=== PATIENT | female | born 2000 | race Caucasian/White ===

== ENCOUNTER 2023-04-12 06:31 | Inpatient (IN) ==
--- NOTE | 2023-04-12 07:55 | History & Physical Report ---
Date of Service April 12, 2023 Assessment & Plan (1) Severe pre-eclampsia: Plan: Patient was seen on Monday and yesterday again in the office as she had some issues with chest pain. However on detailed questioning it seems like she has more upper epigastric pain she went to a comprehensive emergency room workout and was found to be negative for any serious cardiac issues she did decline chest x-ray. She was brought up here because after being assessed in the ER it was thought that she had an elevated blood pressure and blood pressures have worsened. She does not have a severe headache but her blood pressures are now in the severe range. Additionally with her symptoms and now her platelet count has dropped below 100 her AST is slightly elevated and her creatinine is slightly higher than typical levels I think she has classic preeclampsia with severe features this is reviewed with the patient magnesium will be started and induction process will be started her cervix is closed and 50% she is group B strep positive History of Present Illness Primary Care Provider: Elsa Cardenas, DO Visit JORGE LUIS Calculator Estimated Delivery Date Method Current WG Current Estimate 04/29/23 LMP (Certain) 37w 3d LMP: 07/23/22 : 1 Full term: 0 Premature: 0 Total Number of Induced Abortions: 0 Total Number of Spontaneous Abortions: 0 Ectopics: 0 Multiple births: 0 Number of Living Children: 0 and Delivery Plans GBS Positive in Urine *Treat in labor Protocols We discussedand offered genetic testing at the visit today.This included cystic fibrosis and spinal muscular atrophy testing. Additionally we discussed and offered screening and diagnostic tests for chromosomal problems. These include NT, Quad screen, NIPS, Amniocentesis and [facility] JFD Allergies Allergy/AdvReac Type Severity Reaction Status Date / Time No Known Allergies Allergy Verified 04/11/23 09:31 Home Medications Medication Instructions Recorded Confirmed Type calcium carbonate 200 mg calcium 200 mg PO QID PRN Heartburn 04/12/23 04/12/23 History (500 mg) chewable tablet (Tums) famotidine 20 mg tablet (Pepcid AC) 20 mg PO DAILY PRN Acid Reflux 04/12/23 04/12/23 History prenat.vits,anatoliy,uqu-[id number]-[id number] 1 tab PO DAILY 04/12/23 04/12/23 History Patient History Surgical History (Updated 09/13/22 @ 07:47 by Sonja J Knepp) History of tympanostomy Family History Father Heart disease Social History (Updated 04/12/23 @ 07:03 by Karen Shah RN) Smoking Status: Never smoker Do You Dip or Chew Tobacco: No; Hx Alcohol Use: No Hx Substance Use: No Preferred Language: Lithuanian Communication Ability: Effective Visual Impairment: No Limitations Hearing Ability: Normal 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 Other Information That Helps Us Care for You: No Feels Safe at Home: Yes Safety Concerns: Feels Safe At This Time Diet: regular Gender Identity: Female Assistive Devices: None Review of Systems as per Subjective / HPI Physical Exam Constitutional: WD/WN, vitals as above well developed and well nourished Respiratory: normal respiratory effort, lungs clear to auscultation normal respiratory effort Cardiovascular: RRR, no murmur, no edema Gastrointestinal (Abdomen): normal bowel sounds, soft, nontender, no hepatosplenomegaly Results & Data Vital Signs (Past 12 Hours) Vital Signs Temp Pulse Resp BP 04/12/23 07:10 98.6 F 20 04/12/23 07:42 105 H 04/12/23 07:42 160/88 H 04/12/23 07:28 69 04/12/23 07:28 159/90 H 04/12/23 07:27 69 04/12/23 07:27 152/92 H 04/12/23 07:14 69 04/12/23 07:14 150/100 H 04/12/23 06:55 73 153/102 H 04/12/23 06:51 62 138/96 Coding Level of Care Code None Diagnoses Severe pre-eclampsia O14.10
[2023-04-12] MEDS ORDERED: LIDOCAINE 1% LOCAL 20 ML VIAL INFIL PRN (07:56)
[2023-04-12] MEDS ORDERED: OXYTOCIN 30 UNITS/500 ML BAG IV PRN ×2 (07:56→09:42)
[2023-04-12] MEDS ORDERED: MAG SULFATE 4GM BOLUS FROM BAG IV ONE (07:56)
[2023-04-12] MEDS: LACTATED RINGER'S 1,000 ML IV PRN (08:00)
[2023-04-12] MEDS ORDERED: PENICILLIN G POTASSIUM 6 MU in DEXTROSE 5% 250 ML IV STA (08:01)
[2023-04-12] MEDS ORDERED: NIFEdipine 10 MG CAP PO STA (08:09)
[2023-04-12] MEDS ORDERED: NIFEdipine 10 MG CAP ONE (08:11)
--- NOTE | 2023-04-12 08:11 | Obstetrical Progress Note ---
Date of Service April 12, 2023 Subjective Note blood pressure is now creeped into the severe range as well 164/89 we will elect to treat with nifedipine 10 mg p.o. x1 stat now Results & Data Vital Signs (Past 12 Hours) Vital Signs Temp Pulse Resp BP 04/12/23 07:10 98.6 F 20 04/12/23 07:58 75 04/12/23 07:58 164/89 H 04/12/23 07:42 105 H 04/12/23 07:42 160/88 H 04/12/23 07:28 69 04/12/23 07:28 159/90 H 04/12/23 07:27 69 04/12/23 07:27 152/92 H 04/12/23 07:14 69 04/12/23 07:14 150/100 H 04/12/23 06:55 73 153/102 H 04/12/23 06:51 62 138/96 PG Care Time/CCT Total # of Minutes Spent Total Time Spent with Patient: Total time spent is greater than 50% in coordination of care (as documented) at patient's floor/unit and/or counseling patient: Coding Level of Care Code None Diagnoses
[2023-04-12] MEDS: MAGNESIUM SULFATE / WTR 40 GM/1,000 ML BAG IV SCH (08:17)
[2023-04-12 08:41] LABS: Hemoglobin 13.5 g/dl (12.0-16.0); Mean Corpuscular Hemoglobin 30.7 pg (25.0-34.0); Mean Corpuscular Hgb Conc 34.6 g/dL (32.0-36.0); Mean Corpuscular Volume 88.6 fL (80.0-100.0); Mean Platelet Volume 12.9 fL (9.4-12.4); Platelet Count 86 K/uL (130-400); RDW Coefficient of Variation 13.5 % (11.5-14.5); RDW Standard Deviation 43.7 fL (36.4-46.3); White Blood Count 10.12 K/ul (4.8-10.8)
--- NOTE | 2023-04-12 09:45 | Labor Progress Brief Note ---
Date of Service April 12, 2023 Subjective met w/ pt as on-coming call provider. She is s/p mag bolus, bueno placed, nifedipine x 1. Still having some epigastric pain but better than earlier Assessment & Plan (1) Severe pre-eclampsia: Plan: 22 yo G1 at 37 4/7 wga admitted w/ pre-eclampsia w/ SF VSS, mild range BPs Fetus cat 1 Pre-eclampsia w/ SF - meets criteria by BPs and platelets, s/p nifedipine x 1 this AM. Continue mag Labor - will start induction w/ pit/bueno, 35cc bueno placed and pt tolerated well GBS+, pcn ordered Epidural prn, will discuss w/ anesthesia re plts Physical Exam Genitourinary: OB Exam Abdomen: + vertex (confirmed by bsus) and + estimated weight Manual OB Exam: + cervical dilation 1 cm, + cervical effacement 50% and + station -2 OB Exam Monitor Tracing: + external FHT monitor used, + external uterine monitor used (irreg) and + category I (140/mod/+accel/-decel) Results & Data Vital Signs (Past 12 Hours) Vital Signs Temp Pulse Resp BP 04/12/23 08:17 20 04/12/23 07:10 98.6 F 20 04/12/23 09:26 85 04/12/23 09:26 142/88 H 04/12/23 09:11 88 04/12/23 09:11 141/80 H 04/12/23 08:56 93 H 04/12/23 08:56 142/82 H 04/12/23 08:42 100 H 04/12/23 08:42 140/82 04/12/23 08:27 73 04/12/23 08:27 158/91 H 04/12/23 07:58 75 04/12/23 07:58 164/89 H 04/12/23 07:42 105 H 04/12/23 07:42 160/88 H 04/12/23 07:28 69 04/12/23 07:28 159/90 H 04/12/23 07:27 69 04/12/23 07:27 152/92 H 04/12/23 07:14 69 04/12/23 07:14 150/100 H 04/12/23 06:55 73 153/102 H 04/12/23 06:51 62 138/96 Coding Level of Care Code None Diagnoses Severe pre-eclampsia O14.10
[2023-04-12] MEDS ORDERED: SODIUM CHLORIDE 0.9% 250 ML IV PRN (11:11)
[2023-04-12] MEDS: PENICILLIN G POTASSIUM 3 MU in DEXTROSE 5% 100 ML IV PRN ×3 (13:01→21:41)
[2023-04-12 14:21] LABS: Hematocrit (blood only) 42.6 % (37.0-47.0); Hemoglobin 14.8 g/dl (12.0-16.0); Mean Corpuscular Hemoglobin 30.5 pg (25.0-34.0); Mean Corpuscular Hgb Conc 34.7 g/dL (32.0-36.0); Mean Corpuscular Volume 87.8 fL (80.0-100.0); Mean Platelet Volume 12.9 fL (9.4-12.4); Platelet Count 71 K/uL (130-400); RDW Coefficient of Variation 13.7 % (11.5-14.5); RDW Standard Deviation 43.8 fL (36.4-46.3); Red Blood Count 4.85 M/uL (4.20-5.40); White Blood Count 11.71 K/ul (4.8-10.8)
[2023-04-12] MEDS ORDERED: ACETAMINOPHEN 325 MG TAB PO PRN (15:36)
--- NOTE | 2023-04-12 15:55 | Labor Progress Brief Note ---
Date of Service April 12, 2023 Subjective Uncomfortable w/ ctx. OCHOA unchanged, denies other s/s PET Assessment & Plan (1) Severe pre-eclampsia: Plan: 22 yo G1 at 37 4/7 wga admitted w/ pre-eclampsia w/ SF VSS, mild range BPs Fetus cat 1 Pre-eclampsia w/ SF - Mag running, excellent UOP. Platelets have slowly drifted and now at 71. Discussed w/ anesthesia who feel too risky for epidural and did discuss this w/ pt. Discussed continuing q6h labs to ensure cr not worsening, if increases may need to decrease maintenance mag but at this point uop and clinically not showing signs of mag tox. Will have mag level ordered due to cr as well. Labor - bueno still present but feels like almost out, continue pit GBS+, pcn ordered Unable to get epidural, discussed tylenol and stadol options and pt aware Admission and Anticipated Discharge Date Admission Date: April 12, 2023 Physical Exam Genitourinary: OB Exam Monitor Tracing: + external FHT monitor used, + external uterine monitor used (q3-6) and + category I (140/mod/+accel/-decel) Bueno bulb still in place Results & Data Vital Signs (Past 12 Hours) Vital Signs Temp Pulse Resp BP Pulse Ox 04/12/23 15:03 20 04/12/23 15:03 20 04/12/23 14:00 22 04/12/23 14:00 22 04/12/23 13:06 20 04/12/23 12:01 20 04/12/23 11:59 98.8 F 20 04/12/23 11:00 20 04/12/23 10:00 20 04/12/23 08:17 20 04/12/23 07:10 98.6 F 20 04/12/23 15:43 99 04/12/23 15:43 86 04/12/23 15:38 100 04/12/23 15:38 88 04/12/23 15:33 100 04/12/23 15:33 89 04/12/23 15:28 100 04/12/23 15:28 93 H 04/12/23 15:29 88 04/12/23 15:29 145/98 H 04/12/23 15:23 100 04/12/23 15:23 101 H 04/12/23 15:18 100 04/12/23 15:18 93 H 04/12/23 15:13 100 04/12/23 15:13 98 H 04/12/23 15:08 100 04/12/23 15:08 90 04/12/23 15:03 100 04/12/23 15:03 87 04/12/23 14:58 100 04/12/23 14:58 86 04/12/23 14:59 85 04/12/23 14:59 140/95 04/12/23 14:53 100 04/12/23 14:53 83 04/12/23 14:48 100 04/12/23 14:48 84 04/12/23 14:43 100 04/12/23 14:43 85 04/12/23 14:38 100 04/12/23 14:38 90 04/12/23 14:33 100 04/12/23 14:33 85 04/12/23 14:28 100 04/12/23 14:28 96 H 04/12/23 14:28 92 H 04/12/23 14:28 20 138/93 04/12/23 14:23 100 04/12/23 14:23 90 04/12/23 14:18 100 04/12/23 14:18 87 04/12/23 14:13 100 04/12/23 14:13 87 04/12/23 14:08 100 04/12/23 14:08 85 04/12/23 14:03 100 04/12/23 14:03 88 04/12/23 14:01 87 04/12/23 14:01 138/87 04/12/23 13:58 100 04/12/23 13:58 90 04/12/23 13:53 100 04/12/23 13:53 101 H 04/12/23 13:48 99 04/12/23 13:48 85 04/12/23 13:43 100 04/12/23 13:43 86 04/12/23 13:38 99 04/12/23 13:38 92 H 04/12/23 13:33 100 04/12/23 13:33 88 04/12/23 13:28 100 04/12/23 13:28 88 04/12/23 13:28 131/79 04/12/23 13:23 100 04/12/23 13:23 89 04/12/23 13:18 100 04/12/23 13:18 84 04/12/23 13:13 99 04/12/23 13:13 89 05 13:08 100 04/12/23 13:08 89 04/12/23 13:03 100 04/12/23 13:03 88 04/12/23 12:58 100 04/12/23 12:58 87 04/12/23 12:58 131/78 04/12/23 12:53 100 04/12/23 12:53 88 04/12/23 12:48 100 04/12/23 12:48 83 04/12/23 12:43 100 04/12/23 12:43 92 H 04/12/23 12:38 100 04/12/23 12:38 93 H 04/12/23 12:33 100 04/12/23 12:33 78 04/12/23 12:28 98 04/12/23 12:28 85 04/12/23 12:28 130/82 04/12/23 12:23 99 04/12/23 12:23 83 04/12/23 12:18 99 04/12/23 12:18 84 04/12/23 12:13 100 04/12/23 12:13 84 04/12/23 12:08 98 04/12/23 12:08 81 04/12/23 12:03 100 04/12/23 12:03 80 04/12/23 11:58 99 04/12/23 11:58 85 04/12/23 11:58 139/93 04/12/23 11:53 100 04/12/23 11:53 83 04/12/23 11:48 99 04/12/23 11:48 81 04/12/23 11:43 100 04/12/23 11:43 83 04/12/23 11:38 100 04/12/23 11:38 85 04/12/23 11:33 100 04/12/23 11:33 89 04/12/23 11:28 98 04/12/23 11:28 88 04/12/23 11:28 20 144/93 H 04/12/23 11:23 99 04/12/23 11:23 80 04/12/23 11:18 100 04/12/23 11:18 77 04/12/23 11:13 98 04/12/23 11:13 83 04/12/23 11:08 99 04/12/23 11:08 82 04/12/23 11:03 100 04/12/23 11:03 93 H 04/12/23 10:59 81 04/12/23 10:59 147/91 H 04/12/23 10:58 18 100 04/12/23 10:58 84 04/12/23 10:53 99 04/12/23 10:53 87 04/12/23 10:48 100 04/12/23 10:48 86 04/12/23 10:43 100 04/12/23 10:43 78 04/12/23 10:38 100 04/12/23 10:38 80 04/12/23 10:33 100 04/12/23 10:33 81 04/12/23 10:29 75 04/12/23 10:29 155/93 H 04/12/23 10:28 100 04/12/23 10:28 80 04/12/23 10:23 99 04/12/23 10:23 84 04/12/23 10:18 99 04/12/23 10:18 94 H 04/12/23 10:13 99 04/12/23 10:13 87 04/12/23 10:08 100 04/12/23 10:08 85 04/12/23 10:05 80 04/12/23 10:05 133/89 04/12/23 10:03 100 04/12/23 10:03 83 04/12/23 09:58 100 04/12/23 09:58 80 04/12/23 09:53 100 04/12/23 09:53 83 04/12/23 09:48 100 04/12/23 09:48 82 04/12/23 09:26 85 04/12/23 09:26 20 142/88 H 04/12/23 09:11 88 04/12/23 09:11 141/80 H 04/12/23 08:56 93 H 04/12/23 08:56 142/82 H 04/12/23 08:42 100 H 04/12/23 08:42 140/82 04/12/23 08:27 73 04/12/23 08:27 158/91 H 04/12/23 07:58 75 04/12/23 07:58 164/89 H 04/12/23 07:42 105 H 04/12/23 07:42 160/88 H 04/12/23 07:28 69 04/12/23 07:28 159/90 H 04/12/23 07:27 69 04/12/23 07:27 152/92 H 04/12/23 07:14 69 04/12/23 07:14 150/100 H 04/12/23 06:55 73 153/102 H 04/12/23 06:51 62 138/96 Coding Level of Care Code 67084 OP VST EST LOW 20-29 MIN Diagnoses Severe pre-eclampsia O14.10
--- NOTE | 2023-04-12 16:55 | Communication Note ---
Date of Service: April 12, 2023 Informed by attending OB physician that patient had declining platelet count in the past 1-2 days. Patient admitted and being induced for severe pre-E (see OB physician's note for full details). Platelet count has been trended since her arrival and at most recent check it is down to 71 (was slightly over 100 yesterday). In the setting of severe pre-E with a large decline in platelet count, I did not feel it was appropriate to offer this patient a neuraxial technique. She is still not in significant labor pain and my concern is that this platelet count would continue to decline. Platelet transfusion not appropriate for epidural in setting of pre-E due to consumptive nature of the disease process. Had a lengthy discussion with patient and voiced my concerns about possibility of epidural hematoma. All questions were answered and patient to discuss pain control options with attending OB physician.
[2023-04-12] MEDS ORDERED: ONDANSETRON INJ 2 MG/ML 2 ML VIAL IV PRN (17:36)
--- NOTE | 2023-04-12 18:08 | Labor Progress Brief Note ---
Date of Service April 12, 2023 Subjective SROM around 1710 and leaking since, managing ctx Assessment & Plan (1) Severe pre-eclampsia: Plan: 22 yo G1 at 37 4/7 wga admitted w/ pre-eclampsia w/ SF VSS, mild range BPs Fetus cat 1 Pre-eclampsia w/ SF - Mag running, good UOP. Set of labs currently pending Labor - pit at 18, bueno now out and 4cm, had srom. Continue induction GBS+, pcn ordered Unable to get epidural, discussed tylenol and stadol options and pt aware Admission and Anticipated Discharge Date Admission Date: April 12, 2023 Physical Exam Genitourinary: Manual OB Exam: + cervical dilation 4 cm, + cervical effacement 70% and + station -2 OB Exam Monitor Tracing: + external FHT monitor used, + external uterine monitor used (q2-5) and + category I (140/mod/+accel/-decel) Results & Data Vital Signs (Past 12 Hours) Vital Signs Temp Pulse Resp BP Pulse Ox 04/12/23 17:02 20 04/12/23 17:02 16 04/12/23 15:56 20 04/12/23 15:52 99.0 F 20 04/12/23 15:03 20 04/12/23 15:03 20 04/12/23 14:00 22 04/12/23 14:00 22 04/12/23 13:06 20 04/12/23 12:01 04/12/23 11:59 98.8 F 20 04/12/23 11:00 20 04/12/23 10:00 20 04/12/23 08:17 20 04/12/23 07:10 98.6 F 20 04/12/23 18:03 100 04/12/23 18:03 97 H 04/12/23 17:58 100 04/12/23 17:58 87 04/12/23 17:58 142/95 H 04/12/23 17:53 100 04/12/23 17:53 86 04/12/23 17:48 100 04/12/23 17:48 87 04/12/23 17:43 100 04/12/23 17:43 79 04/12/23 17:38 100 04/12/23 17:38 79 04/12/23 17:33 100 04/12/23 17:33 79 04/12/23 17:28 100 04/12/23 17:28 93 H 04/12/23 17:29 89 04/12/23 17:29 135/91 04/12/23 17:23 100 04/12/23 17:23 95 H 04/12/23 17:18 100 04/12/23 17:18 98 H 04/12/23 17:13 100 04/12/23 17:13 91 H 04/12/23 17:08 100 04/12/23 17:08 84 04/12/23 17:03 100 04/12/23 17:03 84 04/12/23 16:58 100 04/12/23 16:58 88 04/12/23 16:59 90 04/12/23 16:59 144/97 H 04/12/23 16:53 100 04/12/23 16:53 80 04/12/23 16:48 100 04/12/23 16:48 90 04/12/23 16:43 99 04/12/23 16:43 84 04/12/23 16:38 100 04/12/23 16:38 86 04/12/23 16:33 99 04/12/23 16:33 85 04/12/23 16:28 100 04/12/23 16:28 89 04/12/23 16:28 96 H 04/12/23 16:28 147/99 H 04/12/23 16:23 99 04/12/23 16:23 87 04/12/23 16:18 99 04/12/23 16:18 84 04/12/23 16:13 99 04/12/23 16:13 82 04/12/23 16:08 100 04/12/23 16:08 81 04/12/23 16:03 100 04/12/23 16:03 84 04/12/23 15:59 87 04/12/23 15:59 149/99 H 04/12/23 15:58 100 04/12/23 15:58 83 04/12/23 15:53 99 04/12/23 15:53 82 04/12/23 15:48 100 04/12/23 15:48 89 04/12/23 15:43 99 04/12/23 15:43 86 04/12/23 15:38 100 04/12/23 15:38 88 05/31/23 15:33 100 04/12/23 15:33 89 04/12/23 15:28 100 04/12/23 15:28 93 H 04/12/23 15:29 88 04/12/23 15:29 145/98 H 04/12/23 15:23 100 04/12/23 15:23 101 H 04/12/23 15:18 100 04/12/23 15:18 93 H 04/12/23 15:13 100 04/12/23 15:13 98 H 04/12/23 15:08 100 04/12/23 15:08 90 04/12/23 15:03 100 04/12/23 15:03 87 04/12/23 14:58 100 04/12/23 14:58 86 04/12/23 14:59 85 04/12/23 14:59 140/95 04/12/23 14:53 100 04/12/23 14:53 83 04/12/23 14:48 100 04/12/23 14:48 84 04/12/23 14:43 100 04/12/23 14:43 85 04/12/23 14:38 100 04/12/23 14:38 90 04/12/23 14:33 100 04/12/23 14:33 85 04/12/23 14:28 100 04/12/23 14:28 96 H 04/12/23 14:28 92 H 04/12/23 14:28 20 138/93 04/12/23 14:23 100 04/12/23 14:23 90 04/12/23 14:18 100 04/12/23 14:18 87 04/12/23 14:13 100 04/12/23 14:13 87 04/12/23 14:08 100 04/12/23 14:08 85 04/12/23 14:03 100 04/12/23 14:03 88 04/12/23 14:01 87 04/12/23 14:01 138/87 04/12/23 13:58 100 04/12/23 13:58 90 04/12/23 13:53 100 04/12/23 13:53 101 H 04/12/23 13:48 99 04/12/23 13:48 85 04/12/23 13:43 100 04/12/23 13:43 86 04/12/23 13:38 99 04/12/23 13:38 92 H 04/12/23 13:33 100 04/12/23 13:33 88 04/12/23 13:28 100 04/12/23 13:28 88 04/12/23 13:28 131/79 05 13:23 100 04/12/23 13:23 89 04/12/23 13:18 100 04/12/23 13:18 84 04/12/23 13:13 99 04/12/23 13:13 89 04/12/23 13:08 100 04/12/23 13:08 89 04/12/23 13:03 100 04/12/23 13:03 88 04/12/23 12:58 100 04/12/23 12:58 87 04/12/23 12:58 131/78 04/12/23 12:53 100 04/12/23 12:53 88 04/12/23 12:48 100 04/12/23 12:48 83 04/12/23 12:43 100 04/12/23 12:43 92 H 04/12/23 12:38 100 04/12/23 12:38 93 H 04/12/23 12:33 100 04/12/23 12:33 78 04/12/23 12:28 98 04/12/23 12:28 85 04/12/23 12:28 130/82 04/12/23 12:23 99 04/12/23 12:23 83 04/12/23 12:18 99 04/12/23 12:18 84 04/12/23 12:13 100 04/12/23 12:13 84 04/12/23 12:08 98 04/12/23 12:08 81 04/12/23 12:03 100 04/12/23 12:03 80 04/12/23 11:58 99 04/12/23 11:58 85 04/12/23 11:58 139/93 04/12/23 11:53 100 04/12/23 11:53 83 04/12/23 11:48 99 04/12/23 11:48 81 04/12/23 11:43 100 04/12/23 11:43 83 04/12/23 11:38 100 05 11:38 85 05/31/23 11:33 100 04/12/23 11:33 89 04/12/23 11:28 98 04/12/23 11:28 88 04/12/23 11:28 20 144/93 H 04/12/23 11:23 99 04/12/23 11:23 80 04/12/23 11:18 100 04/12/23 11:18 77 04/12/23 11:13 98 04/12/23 11:13 83 04/12/23 11:08 99 04/12/23 11:08 82 04/12/23 11:03 100 04/12/23 11:03 93 H 04/12/23 10:59 81 04/12/23 10:59 147/91 H 04/12/23 10:58 18 100 04/12/23 10:58 84 04/12/23 10:53 99 04/12/23 10:53 87 04/12/23 10:48 100 04/12/23 10:48 86 04/12/23 10:43 100 04/12/23 10:43 78 04/12/23 10:38 100 04/12/23 10:38 80 04/12/23 10:33 100 04/12/23 10:33 81 04/12/23 10:29 75 04/12/23 10:29 155/93 H 04/12/23 10:28 100 04/12/23 10:28 80 04/12/23 10:23 99 04/12/23 10:23 84 04/12/23 10:18 99 04/12/23 10:18 94 H 04/12/23 10:13 99 04/12/23 10:13 87 04/12/23 10:08 100 04/12/23 10:08 85 04/12/23 10:05 80 04/12/23 10:05 133/89 04/12/23 10:03 100 04/12/23 10:03 83 04/12/23 09:58 100 04/12/23 09:58 80 04/12/23 09:53 100 04/12/23 09:53 83 04/12/23 09:48 100 04/12/23 09:48 82 04/12/23 09:26 85 04/12/23 09:26 20 142/88 H 04/12/23 09:11 88 04/12/23 09:11 141/80 H 04/12/23 08:56 93 H 04/12/23 08:56 142/82 H 04/12/23 08:42 100 H 04/12/23 08:42 140/82 04/12/23 08:27 73 04/12/23 08:27 158/91 H 04/12/23 07:58 75 04/12/23 07:58 164/89 H 04/12/23 07:42 105 H 04/12/23 07:42 160/88 H 04/12/23 07:28 69 04/12/23 07:28 159/90 H 04/12/23 07:27 69 04/12/23 07:27 152/92 H 04/12/23 07:14 69 04/12/23 07:14 150/100 H 04/12/23 06:55 73 153/102 H 04/12/23 06:51 62 138/96 Coding Level of Care Code None Diagnoses Severe pre-eclampsia O14.10
[2023-04-12 18:14] LABS: Hematocrit (blood only) 36.2 % (37.0-47.0); Hemoglobin 12.8 g/dl (12.0-16.0); Mean Corpuscular Hemoglobin 30.6 pg (25.0-34.0); Mean Corpuscular Hgb Conc 35.4 g/dL (32.0-36.0); Mean Corpuscular Volume 86.6 fL (80.0-100.0); Platelet Count 55 K/uL (130-400); RDW Coefficient of Variation 13.7 % (11.5-14.5); RDW Standard Deviation 42.6 fL (36.4-46.3); Red Blood Count 4.18 M/uL (4.20-5.40)
[2023-04-12 18:34] LABS: Albumin Level 3.3 gm/dl (3.4-5.0); BUN Creatinine Ratio 16.5 (10-20); Bilirubin,Total 1.1 mg/dl (0.2-1.0); Calcium 7.6 mg/dl (8.6-10.3); Creatinine Clr Calc Pharmacy 105.9 ml/min; Est GFR (African American) 112.7 ml/min; Est GFR (Non-African American) 97.3 ml/min; Globulin 3.2 gm/dl (2.5-4.0); Magnesium Therapeutic L&D Only 6.2 mg/dL (4.0-8.0); Potassium 4.5 mmol/L (3.5-5.1); Total Protein 6.5 gm/dl (6.0-8.3)
[2023-04-12] MEDS: BUTORPHANOL TARTRATE 1 MG/ML VIAL IV PRN ×2 (18:49→20:54)
[2023-04-12 20:53] LABS: Fibrinogen 522 mg/dl (184-400); INR 0.8 (0.9-1.1); Partial Thromboplastin Time 29.6 Seconds (21.0-31.0); Prothrombin Time 9.3 Seconds (9.0-12.0)
--- NOTE | 2023-04-12 23:08 | Delivery Summary ---
Vaginal Delivery Summary Date of Service April 12, 2023 Vaginal Delivery Summary and 2nd Degree LAC PREOPERATIVE DIAGNOSIS: 1. Single intrauterine at 37 4/7 wga 2. HELLP Syndrome 3. GBS+ POSTOPERATIVE DIAGNOSIS: 1. Single intrauterine at 37 4/7 wga 2. HELLP Syndrome 3. GBS+ 4. Delivered PROCEDURE: 1. Normal spontaneous vaginal delivery. SURGEON: Nenita Patel MD ANESTHESIA: Local, stadol ESTIMATED BLOOD LOSS: 400 mL FLUIDS: Continuous LR. URINE OUTPUT: None. COMPLICATIONS: None. CONDITION: Stable. INDICATIONS: 22 yo G1 at 37 4/7 wga presented early this AM with complaints of chest pain. She had a negative workup in the ED but was noted to have elevated BPs and decreasing platelet count of 94. Given these, she met criteria for pre- eclampsia with severe features and recommended for induction. She was started on penicillin for GBS+ and bueno/pit to begin induction. Serial labs were trended which noted declining platelet count and increasing LFTs. Due to declining platelets, anesthesia recommended against epidural due to risk of he matoma. Following bueno expulsion, she had SROM and continued to progress. Additional labs were drawn when LFTs began increasing and demonstrated an elevated LDH giving her the diagnosis of HELLP. She rapidly progressed from 7 to 10cm and desired to push. FINDINGS: A viable female , weight pending with Apgars of 7 and 9 at 1 and 5 minutes respectively. SPECIMEN: Cord blood, placenta OPERATIVE REPORT: The patient progressed to 10 cm, 100% effaced and +2 station, pushed over intact perineum with anesthesia to deliver a viable female , weight and Apgars as above. Head of delivered in ROSEMARIE position. No nuchal cord was present. Body and shoulders were delivered without difficulty. was delivered to maternal abdomen and nursing staff. Delayed cord clamping was p erformed for 60 seconds. Cord was clamped and cut. Cord blood was obtained. Placenta delivered spontaneously intact with 3-vessel cord. IV oxytocin and fundal massage were given for excellent hemostasis. Vagina, cervix, perineum, and placenta were inspected. A second degree laceration was noted and repaired using 3-0 vicryl in the usual fashion. Atony was noted so hemabate and cytotec were administered, which improved. There was excellent hemostasis. Sponge and needle counts correct x2. No sponges were left behind. Mother and stable in immediate period. [facility] Vaginal Delivery Charge Vaginal Delivery Codes: 47505 global code for the antepartum, delivery, and post- Delivery Type Details: and 2nd Degree LAC
[2023-04-12] MEDS ORDERED: miSOPROStoL 200 MCG TAB ONE (23:29)
[2023-04-12] MEDS ORDERED: CARBOPROST TROMETHAMINE 250 MCG/ML AMPUL ONE (23:29)
[2023-04-12] MEDS: BENZOCAINE 20% AER SPR 82.5 GM CAN EXT PRN (23:30)
[2023-04-12] MEDS ORDERED: BENZOCAINE 20% AER SPR 82.5 GM CAN EXT ONE (23:40)
[2023-04-13] MEDS ORDERED: OXYTOCIN 30 UNITS/500 ML BAG IV PRN (00:09)
[2023-04-13] MEDS ORDERED: bisacodyL 10 MG SUPP PR PRN (00:09)
[2023-04-13] MEDS ORDERED: HYDROCORTISONE ACETATE 25 MG SUPP PR PRN (00:09)
[2023-04-13] MEDS ORDERED: CARBOPROST TROMETHAMINE 250 MCG/ML AMPUL IM ONE (00:09)
[2023-04-13] MEDS ORDERED: DIPHTHERIA/TETANUS/PERTUSSIS Vaccine (Tdap, Age 7+yrs) 0.5mL SYR/VL IM ONE (00:09)
[2023-04-13] MEDS ORDERED: miSOPROStoL 200 MCG TAB PR ONE (00:09)
[2023-04-13] MEDS ORDERED: IBUPROFEN 600 MG TAB PO ONE (00:18)
[2023-04-13] MEDS: LACTATED RINGER'S 1,000 ML IV PRN ×2 (00:22→13:46)
[2023-04-13 00:45] LABS: Albumin Level 2.8 gm/dl (3.4-5.0); BUN Creatinine Ratio 14.3 (10-20); Bilirubin,Total 0.8 mg/dl (0.2-1.0); Calcium 6.7 mg/dl (8.6-10.3); Creatinine Clr Calc Pharmacy 85.8 ml/min; Est GFR (African American) 87.3 ml/min; Est GFR (Non-African American) 75.3 ml/min; Globulin 2.8 gm/dl (2.5-4.0); Potassium 4.3 mmol/L (3.5-5.1); Total Protein 5.6 gm/dl (6.0-8.3)
[2023-04-13 01:25] LABS: Basophils # (auto) 0.04 K/uL (0-0.2); Basophils % (auto) 0.2 %; Eosinophils # (auto) 0.01 K/uL (0-0.50); Eosinophils % (auto) 0.1 %; Hematocrit (blood only) 31.9 % (37.0-47.0); Hemoglobin 10.7 g/dl (12.0-16.0); Immature Granulocytes % (auto) 0.5 %; Lymphocytes # (auto) 1.04 K/uL (1.2-3.4); Lymphocytes % (auto) 5.4 %; Mean Corpuscular Hemoglobin 30.6 pg (25.0-34.0); Mean Corpuscular Hgb Conc 33.5 g/dL (32.0-36.0); Mean Corpuscular Volume 91.1 fL (80.0-100.0); Mean Platelet Volume 11.8 fL (9.4-12.4); Monocytes # (auto) 0.61 K/uL (0.11-0.59); Monocytes % (auto) 3.2 %; Neutrophils # (auto) 17.49 K/uL (1.40-6.50); Neutrophils % (auto) 90.6 %; Platelet Count 59 K/uL (130-400); RDW Standard Deviation 46.2 fL (36.4-46.3); White Blood Count 19.29 K/ul (4.8-10.8)
[2023-04-13] MEDS: MAGNESIUM SULFATE / WTR 40 GM/1,000 ML BAG IV SCH (02:46)
[2023-04-13] MEDS: IBUPROFEN 600 MG TAB PO PRN (05:16)
[2023-04-13] MEDS: ACETAMINOPHEN 325 MG TAB PO PRN ×2 (05:17→11:09)
[2023-04-13 06:18] LABS: Basophils # (auto) 0.03 K/uL (0-0.2); Basophils % (auto) 0.1 %; Hematocrit (blood only) 28.9 % (37.0-47.0); Hemoglobin 9.8 g/dl (12.0-16.0); Immature Granulocytes # (auto) 0.11 K/uL (0.01-0.20); Immature Granulocytes % (auto) 0.5 %; Lymphocytes # (auto) 1.53 K/uL (1.2-3.4); Lymphocytes % (auto) 7.3 %; Mean Corpuscular Hemoglobin 30.7 pg (25.0-34.0); Mean Corpuscular Hgb Conc 33.9 g/dL (32.0-36.0); Mean Corpuscular Volume 90.6 fL (80.0-100.0); Mean Platelet Volume 12.5 fL (9.4-12.4); Monocytes # (auto) 1.07 K/uL (0.11-0.59); Monocytes % (auto) 5.1 %; Neutrophils # (auto) 18.08 K/uL (1.40-6.50); Platelet Count 53 K/uL (130-400); RDW Coefficient of Variation 13.8 % (11.5-14.5); RDW Standard Deviation 45.5 fL (36.4-46.3); Red Blood Count 3.19 M/uL (4.20-5.40); White Blood Count 20.82 K/ul (4.8-10.8)
[2023-04-13 06:27] LABS: Albumin Globulin Ratio 1.1 (0.9-2); Albumin Level 2.7 gm/dl (3.4-5.0); BUN Creatinine Ratio 13.4 (10-20); Bilirubin,Total 0.5 mg/dl (0.2-1.0); Calcium 6.5 mg/dl (8.6-10.3); Creatinine Clr Calc Pharmacy 92.8 ml/min; Est GFR (African American) 96.1 ml/min; Est GFR (Non-African American) 82.9 ml/min; Globulin 2.5 gm/dl (2.5-4.0); Magnesium Therapeutic L&D Only 7.6 mg/dL (4.0-8.0); Potassium 4.4 mmol/L (3.5-5.1); Total Protein 5.2 gm/dl (6.0-8.3)
--- NOTE | 2023-04-13 07:26 | Obstetrical Progress Note ---
Date of Service <Demetrius Knight DO - Last Filed: 04/13/23 07:35> April 13, 2023 Assessment & Plan <Demetrius Knight DO - Last Filed: 04/13/23 07:35> (1) Severe pre-eclampsia: (2) Carrier of group B Streptococcus: (3) HELLP (hemolytic anemia/elev liver enzymes/low platelets in ): (4) Vaginal delivery: Plan - Feels well today. NPO at this time while getting Mg, will continue for 24 hours post delivery due to HELLP syndrome. - Will continue to monitor CBC, CMP, and Mg labs Q6H for HELLP syndrome. Platelets low though stable at 53, AST and ALT elevated though downtrending. - Bueno cath in place, getting good output. - Pain well controlled with ibuprofen 600mg Q4H PRN - Routine care will resume after seizure risk is minimal -- OOB, ambulation, diet. - After discharge will have 6 week follow-up with Dr. Patel Day #:: 1 <Nenita Patel MD - Last Filed: 04/13/23 07:56> (1) Severe pre-eclampsia: (2) Carrier of group B Streptococcus: (3) HELLP (hemolytic anemia/elev liver enzymes/low platelets in ): (4) Vaginal delivery: Subjective <Demetrius Knight - Last Filed: 04/13/23 07:35> Ambulation: limited ambulation Voiding: bueno catheter in place Passing Gas:: Yes Diet Tolerance:: NPO Lochia:: Small Feeding Type:: breast feeding Current Pain Level(1-10): 2 Review of Systems Denies fever, chills, sweats Denies shortness of breath, difficulty breathing, chest pain, palpitations, chest pressure. Denies breast pain. Denies dysuria. Denies changes in vision. + headache and burning eyes Physical Exam <Demetrius Knight - Last Filed: 04/13/23 07:35> General: Alert, oriented. No acute distress. Cardiac: Regular rate and rhythm, no murmurs/rubs/gallops. Respiratory: Clear to auscultation bilaterally a/p, no wheezes/rales/rhonchi. No increased work of breathing. Symmetrical chest rise. No respiratory distress. Abdomen: Soft, nontender, nondistended. Bowel sounds present. Uterus: Uterine fundus firm, palpable 1 cm below umbilicus. Lower Extremities: No lower extremity edema or swelling. No deep calf pain. Binh's negative bilaterally. Results & Data <Demetrius Knight, DO - Last Filed: 04/13/23 07:35> Vital Signs (Past 12 Hours) Vital Signs Temp Pulse Resp BP Pulse Ox O2 Del Method 04/13/23 07:15 36.4 C 16 Room Air 04/13/23 06:00 18 04/13/23 05:00 18 100 04/13/23 05:00 18 04/13/23 04:02 18 04/13/23 03:00 18 04/13/23 02:00 36.7 C 18 99 04/13/23 02:00 18 04/13/23 01:06 18 04/13/23 00:36 18 99 04/12/23 23:51 18 04/12/23 23:36 36.7 C 18 04/12/23 19:30 18 04/13/23 07:22 83 99 04/13/23 07:17 90 99 04/13/23 07:12 85 99 04/13/23 07:07 94 H 99 04/13/23 07:02 87 98 04/13/23 06:57 97 H 100 04/13/23 06:53 83 118/68 04/13/23 06:52 84 97 04/13/23 06:47 96 H 99 04/13/23 06:42 85 96 04/13/23 06:37 81 96 04/13/23 06:32 83 97 04/13/23 06:27 82 96 04/13/23 06:22 94 H 99 04/13/23 06:17 84 96 04/13/23 06:12 80 96 04/13/23 06:07 79 96 04/13/23 06:02 81 99 04/13/23 05:57 82 99 04/13/23 05:53 76 129/73 04/13/23 05:52 84 99 04/13/23 05:47 86 99 04/13/23 05:42 81 100 04/13/23 05:37 84 99 04/13/23 05:32 80 100 04/13/23 05:27 95 H 99 04/13/23 05:22 80 99 04/13/23 05:17 82 98 04/13/23 05:12 76 99 04/13/23 05:07 84 100 04/13/23 05:02 85 99 04/13/23 04:57 76 100 04/13/23 04:53 83 138/81 04/13/23 04:52 88 100 04/13/23 04:47 81 99 04/13/23 04:42 96 H 100 04/13/23 04:37 82 99 04/13/23 04:32 86 99 04/13/23 04:27 91 H 99 04/13/23 04:22 79 99 04/13/23 04:17 76 99 04/13/23 04:12 77 98 04/13/23 04:07 77 98 04/13/23 04:02 79 98 04/13/23 03:57 85 99 04/13/23 03:52 82 99 04/13/23 03:53 78 122/84 04/13/23 03:47 76 99 04/13/23 03:42 78 98 04/13/23 03:37 75 97 04/13/23 03:32 76 98 04/13/23 03:27 74 97 04/13/23 03:22 75 97 04/13/23 03:17 73 98 04/13/23 03:12 76 97 04/13/23 03:07 72 98 04/13/23 03:02 77 97 04/13/23 02:57 85 99 04/13/23 02:52 83 98 04/13/23 02:53 86 122/87 04/13/23 02:47 89 99 04/13/23 02:42 79 97 04/13/23 02:37 75 97 04/13/23 02:32 77 97 04/13/23 02:27 79 97 04/13/23 02:22 73 97 04/13/23 02:17 73 98 04/13/23 02:12 75 97 04/13/23 02:07 75 97 04/13/23 02:02 77 97 04/13/23 01:57 75 97 04/13/23 01:52 76 98 04/13/23 01:53 81 106/69 04/13/23 01:47 85 99 04/13/23 01:42 80 97 04/13/23 01:37 78 99 04/13/23 01:32 83 99 04/13/23 01:27 81 97 04/13/23 01:22 76 99 04/13/23 01:17 84 98 04/13/23 01:12 94 H 97 04/13/23 01:07 87 98 04/13/23 01:02 81 96 04/13/23 00:57 83 97 04/13/23 00:52 87 106/67 98 04/13/23 00:47 88 97 04/13/23 00:42 100 H 98 04/13/23 00:37 93 H 110/71 98 04/13/23 00:32 101 H 97 04/13/23 00:27 98 H 98 04/13/23 00:22 98 H 110/63 98 04/13/23 00:17 97 H 98 04/13/23 00:12 102 H 97 04/13/23 00:07 107 H 97 04/13/23 00:02 102 H 97 04/12/23 23:57 98 04/12/23 23:57 108 H 04/12/23 23:52 99 04/12/23 23:52 110 H 04/12/23 23:52 113 H 04/12/23 23:52 115/78 04/12/23 23:32 108 H 04/12/23 23:32 119/73 04/12/23 23:26 97 04/12/23 23:26 107 H 04/12/23 23:21 97 04/12/23 23:21 109 H 04/12/23 23:22 111 H 04/12/23 23:22 110/65 04/12/23 23:16 97 04/12/23 23:16 108 H 04/12/23 23:11 97 04/12/23 23:11 104 H 04/12/23 23:06 96 04/12/23 23:06 112 H 04/12/23 23:06 112/78 04/12/23 22:28 108 H 04/12/23 22:28 122/80 04/12/23 22:00 18 04/12/23 22:00 37.0 C 18 04/12/23 22:09 94 04/12/23 22:09 91 H 04/12/23 22:08 98 05/31/23 22:08 93 H 04/12/23 22:03 100 04/12/23 22:03 91 H 04/12/23 21:58 100 04/12/23 21:58 88 04/12/23 21:58 96 H 04/12/23 21:58 140/102 H 04/12/23 21:53 97 04/12/23 21:53 97 H 04/12/23 21:48 99 04/12/23 21:48 90 04/12/23 21:43 99 04/12/23 21:43 94 H 04/12/23 21:38 98 04/12/23 21:38 86 04/12/23 21:33 99 04/12/23 21:33 85 04/12/23 21:00 20 04/12/23 21:00 20 04/12/23 21:28 96 04/12/23 21:28 78 04/12/23 21:28 130/79 04/12/23 21:28 93 04/12/23 21:28 78 04/12/23 21:23 91 04/12/23 21:23 85 04/12/23 21:23 93 04/12/23 21:23 87 04/12/23 21:18 97 04/12/23 21:18 85 04/12/23 21:13 92 04/12/23 21:13 81 04/12/23 21:08 93 04/12/23 21:08 80 04/12/23 21:07 92 04/12/23 21:07 81 04/12/23 21:03 89 L 04/12/23 21:03 75 04/12/23 21:02 92 04/12/23 21:02 85 04/12/23 20:58 96 04/12/23 20:58 73 04/12/23 20:58 78 04/12/23 20:58 129/82 04/12/23 20:55 94 04/12/23 20:55 88 04/12/23 20:53 92 04/12/23 20:53 87 04/12/23 20:48 97 04/12/23 20:49 93 04/12/23 20:48 86 04/12/23 20:49 89 04/12/23 20:43 98 04/12/23 20:43 86 0531/23 20:30 18 04/12/23 20:30 18 04/12/23 20:42 92 04/12/23 20:42 78 04/12/23 20:38 95 04/12/23 20:38 82 04/12/23 20:36 92 04/12/23 20:36 84 04/12/23 20:33 91 04/12/23 20:33 85 04/12/23 20:29 94 04/12/23 20:29 83 04/12/23 20:29 138/107 H 04/12/23 20:28 98 04/12/23 20:28 93 H 04/12/23 20:23 99 04/12/23 20:23 82 04/12/23 20:23 93 04/12/23 20:23 81 04/12/23 20:18 94 04/12/23 20:18 86 04/12/23 20:16 93 04/12/23 20:16 83 04/12/23 20:13 99 04/12/23 20:13 82 04/12/23 20:09 91 04/12/23 20:09 74 04/12/23 20:08 95 04/12/23 20:08 81 04/12/23 20:00 18 04/12/23 20:00 18 04/12/23 20:03 90 04/12/23 20:03 83 04/12/23 20:01 80 04/12/23 20:01 123/89 04/12/23 20:01 94 04/12/23 20:01 87 04/12/23 19:58 96 04/12/23 19:58 81 04/12/23 19:53 92 04/12/23 19:53 79 04/12/23 19:52 93 04/12/23 19:52 82 04/12/23 19:48 98 04/12/23 19:48 86 04/12/23 19:47 92 04/12/23 19:47 86 04/12/23 19:30 18 04/12/23 19:30 37.0 C 18 04/12/23 19:43 93 04/12/23 19:43 89 04/12/23 19:40 94 04/12/23 19:40 86 04/12/23 19:38 95 04/12/23 19:38 83 04/12/23 19:35 91 04/12/23 19:35 73 04/12/23 19:33 96 04/12/23 19:33 86 04/12/23 19:28 96 04/12/23 19:28 87 04/12/23 19:28 142/81 H 04/12/23 19:28 92 04/12/23 19:28 86 <Nenita Patel MD - Last Filed: 04/13/23 07:56> Co-Signing Physician Notes Resident Physician Supervision Note: I interviewed and examined the patient. Discussed with Dr. Knight and agree with findings and plan as documented in the note. Any exceptions or clarifications are listed here: PP1 s/p c/b HELLP syndrome, currently on mag. VSS, exam benign and wnl. Will continue mag x 24hrs from delivery. Labs this am show stable platelets at 53, LFTs downtrending, Cr slightly elevated but stable, mag level wnl. UOP is great. Continue q6h labs, overall appearing to be heading in the right direction Documented By: Nenita Patel MD Resident Activity Tracking <Demetrius Knight DO - Last Filed: 04/13/23 07:35> Resident Involvement: Resident Care Provided Care Provided: OB Delivery
[2023-04-13] MEDS: DOCUSATE SODIUM 100 MG CAP PO SCH ×2 (08:01→21:06)
[2023-04-13] MEDS: PRENATAL VITAMIN 1 TAB PO SCH (08:01)
[2023-04-13] MEDS: FERROUS SULFATE 325 MG TAB PO SCH (08:01)
[2023-04-13 12:18] LABS: Basophils # (auto) 0.03 K/uL (0-0.2); Basophils % (auto) 0.2 %; Eosinophils # (auto) 0.03 K/uL (0-0.50); Eosinophils % (auto) 0.2 %; Hemoglobin 9.6 g/dl (12.0-16.0); Immature Granulocytes % (auto) 1.6 %; Lymphocytes # (auto) 1.79 K/uL (1.2-3.4); Lymphocytes % (auto) 9.6 %; Mean Corpuscular Hemoglobin 30.8 pg (25.0-34.0); Mean Corpuscular Hgb Conc 34.3 g/dL (32.0-36.0); Mean Corpuscular Volume 89.7 fL (80.0-100.0); Mean Platelet Volume 12.4 fL (9.4-12.4); Monocytes # (auto) 1.02 K/uL (0.11-0.59); Monocytes % (auto) 5.5 %; Neutrophils # (auto) 15.51 K/uL (1.40-6.50); Neutrophils % (auto) 82.9 %; Platelet Count 59 K/uL (130-400); RDW Coefficient of Variation 14.2 % (11.5-14.5); Red Blood Count 3.12 M/uL (4.20-5.40); White Blood Count 18.68 K/ul (4.8-10.8)
[2023-04-13 12:30] LABS: Albumin Level 2.7 gm/dl (3.4-5.0); BUN Creatinine Ratio 13.8 (10-20); Bilirubin,Total 0.5 mg/dl (0.2-1.0); Calcium 6.3 mg/dl (8.6-10.3); Creatinine Clr Calc Pharmacy 95.8 ml/min; Est GFR (African American) 99.8 ml/min; Est GFR (Non-African American) 86.1 ml/min; Globulin 2.7 gm/dl (2.5-4.0); Potassium 4.2 mmol/L (3.5-5.1); Total Protein 5.4 gm/dl (6.0-8.3)
[2023-04-13 14:50] LABS: Magnesium Therapeutic L&D Only 8.3 mg/dL (4.0-8.0)
[2023-04-13] MEDS ORDERED: OPTIRAY 320 100ml IV ONE (15:45)
--- NOTE | 2023-04-13 16:06 | CT Scan Report ---
CHEST CTA for PULMONARY ARTERIES CT DOSE: 544.69 mGy.cm HISTORY: Hemoptysis. TECHNIQUE: Multiaxial CT images of the chest were performed following the intravenous administration of contrast to evaluate the pulmonary arteries. Maximal intensity projection images were also obtaine d. A dose lowering technique was utilized adhering to the principles of ALARA. COMPARISON STUDY: None. FINDINGS: Limited views of the upper abdomen demonstrate normal liver, spleen, and adrenal glands. No rmal thyroid gland. Normal esophagus. The heart is top normal in size. No pleural or pericardial effu sions. No mediastinal or hilar lymphadenopathy. There are calcified mediastinal and left hilar lymph nodes. There is a calcified granuloma within the lingula. Mild respiratory motion artifact. Normal ca liber thoracic aorta with no evidence for a dissection. Suboptimal evaluation of the lingular subsegm ental pulmonary arteries due to the respiratory motion artifact. Otherwise, no filling defects within the remaining pulmonary arteries to suggest a pulmonary embolus. No acute fractures identified. No p neumothorax. The central airways are patent. Mild dependent changes seen within the lungs posteriorly . Otherwise, no focal lung consolidations to suggest a pneumonia. No evidence for pulmonary edema. IMPRESSION: Respiratory motion artifact. However, no evidence for a pulmonary embolus. ACT 112: Negative or not required by law. Electronically signed by: Eddi Daly M.D. 04/13/2023 4:04 PM
[2023-04-13 18:29] LABS: Basophils # (auto) 0.03 K/uL (0-0.2); Basophils % (auto) 0.2 %; Eosinophils # (auto) 0.09 K/uL (0-0.50); Eosinophils % (auto) 0.5 %; Hematocrit (blood only) 24.9 % (37.0-47.0); Hemoglobin 8.6 g/dl (12.0-16.0); Immature Granulocytes # (auto) 0.08 K/uL (0.01-0.20); Immature Granulocytes % (auto) 0.4 %; Lymphocytes # (auto) 2.29 K/uL (1.2-3.4); Lymphocytes % (auto) 12.9 %; Mean Corpuscular Hemoglobin 30.8 pg (25.0-34.0); Mean Corpuscular Hgb Conc 34.5 g/dL (32.0-36.0); Mean Corpuscular Volume 89.2 fL (80.0-100.0); Mean Platelet Volume 12.8 fL (9.4-12.4); Monocytes # (auto) 0.94 K/uL (0.11-0.59); Monocytes % (auto) 5.3 %; Neutrophils # (auto) 14.36 K/uL (1.40-6.50); Neutrophils % (auto) 80.7 %; Platelet Count 73 K/uL (130-400); RDW Standard Deviation 45.3 fL (36.4-46.3); Red Blood Count 2.79 M/uL (4.20-5.40); White Blood Count 17.79 K/ul (4.8-10.8)
[2023-04-13 18:45] LABS: Albumin Level 2.7 gm/dl (3.4-5.0); BUN Creatinine Ratio 12.8 (10-20); Bilirubin,Total 0.3 mg/dl (0.2-1.0); Creatinine Clr Calc Pharmacy 104.7 ml/min; Est GFR (African American) 111.1 ml/min; Est GFR (Non-African American) 95.9 ml/min; Globulin 2.6 gm/dl (2.5-4.0); Magnesium Therapeutic L&D Only 6.9 mg/dL (4.0-8.0); Potassium 4.3 mmol/L (3.5-5.1); Total Protein 5.3 gm/dl (6.0-8.3)
--- NOTE | 2023-04-13 19:47 | Obstetrical Progress Note ---
Date of Service April 13, 2023 Assessment & Plan Admission and Anticipated Discharge Date Admission Date: April 12, 2023 Subjective Labs reviewed, showing improvement. BP wnl. Will plan for stopping magnesium at 10pm tonight, which is 24h after delivery. Results & Data Vital Signs (Past 12 Hours) Vital Signs Temp Pulse Resp BP Pulse Ox O2 Del Method 04/13/23 18:30 16 04/13/23 18:01 16 04/13/23 16:00 36.6 C 16 Room Air 04/13/23 17:00 16 04/13/23 16:00 16 04/13/23 15:00 18 04/13/23 14:00 16 04/13/23 13:00 18 04/13/23 12:00 16 04/13/23 11:00 16 04/13/23 10:00 16 04/13/23 09:00 16 04/13/23 08:00 16 04/13/23 19:40 89 99 04/13/23 19:35 86 99 04/13/23 19:30 87 98 04/13/23 19:25 91 H 98 04/13/23 19:20 98 H 99 04/13/23 19:15 86 123/75 99 04/13/23 19:10 80 98 04/13/23 19:05 87 98 04/13/23 19:00 85 98 04/13/23 18:55 87 98 04/13/23 18:50 88 98 04/13/23 18:45 86 99 04/13/23 18:40 90 98 04/13/23 18:35 86 99 04/13/23 18:30 91 H 98 04/13/23 18:25 92 H 97 04/13/23 18:20 88 97 04/13/23 18:15 90 97 04/13/23 18:10 93 H 97 04/13/23 18:05 87 97 04/13/23 18:00 102 H 97 04/13/23 17:55 92 H 98 04/13/23 17:50 88 97 04/13/23 17:45 100 H 97 04/13/23 17:40 89 98 04/13/23 17:35 80 98 04/13/23 17:30 73 97 04/13/23 17:25 77 97 04/13/23 17:20 74 97 04/13/23 17:15 71 97 04/13/23 17:10 75 97 04/13/23 17:05 71 97 04/13/23 17:00 70 97 04/13/23 16:55 75 97 04/13/23 16:50 91 H 97 04/13/23 16:45 87 99 04/13/23 16:40 92 H 98 04/13/23 16:35 91 H 98 04/13/23 16:30 98 H 98 04/13/23 16:25 82 96 04/13/23 16:20 85 98 04/13/23 16:15 81 98 04/13/23 16:10 78 98 04/13/23 16:00 85 97 04/13/23 15:55 93 H 97 04/13/23 15:27 85 97 04/13/23 15:22 89 97 04/13/23 15:17 86 98 04/13/23 15:12 87 97 04/13/23 15:07 92 H 97 04/13/23 15:02 91 H 98 04/13/23 14:57 89 97 04/13/23 14:52 92 H 96 04/13/23 14:47 91 H 98 04/13/23 14:42 93 H 97 04/13/23 14:37 88 97 04/13/23 14:32 83 96 04/13/23 14:27 85 97 04/13/23 14:22 92 H 97 04/13/23 14:17 99 H 97 04/13/23 14:12 91 H 97 04/13/23 14:07 91 H 98 04/13/23 14:02 87 98 04/13/23 13:57 82 97 04/13/23 13:53 95 H 132/85 04/13/23 13:52 94 H 98 04/13/23 13:47 90 98 04/13/23 13:42 88 98 04/13/23 13:37 80 98 04/13/23 13:32 79 98 04/13/23 13:27 79 98 04/13/23 13:22 83 98 04/13/23 13:17 90 98 04/13/23 13:12 84 98 04/13/23 13:07 88 98 04/13/23 13:02 86 98 04/13/23 12:57 78 98 04/13/23 12:52 92 H 98 04/13/23 12:47 86 98 04/13/23 12:42 85 98 04/13/23 12:37 107 H 99 04/13/23 12:32 90 97 04/13/23 12:27 89 97 04/13/23 12:22 94 H 98 04/13/23 12:18 102 H 132/84 04/13/23 12:17 96 H 98 04/13/23 12:12 94 H 97 04/13/23 12:07 88 97 04/13/23 12:02 91 H 97 04/13/23 11:57 93 H 97 04/13/23 11:52 92 H 98 04/13/23 11:47 88 97 04/13/23 11:42 95 H 98 04/13/23 11:37 89 97 04/13/23 11:32 94 H 98 04/13/23 11:27 93 H 97 04/13/23 11:22 93 H 98 04/13/23 11:17 92 H 98 04/13/23 11:12 99 H 97 04/13/23 11:07 92 H 98 04/13/23 11:02 92 H 98 04/13/23 10:57 89 98 04/13/23 10:53 92 H 110/75 04/13/23 10:52 89 98 04/13/23 10:47 85 97 04/13/23 10:42 86 97 04/13/23 10:37 95 H 97 04/13/23 10:32 87 97 04/13/23 10:27 90 98 04/13/23 10:22 78 95 04/13/23 10:19 77 94 04/13/23 10:17 76 96 04/13/23 10:12 74 95 04/13/23 10:07 72 95 04/13/23 10:08 74 94 04/13/23 10:02 77 94 04/13/23 10:01 79 94 04/13/23 09:57 91 H 98 04/13/23 09:52 94 04/13/23 09:52 75 04/13/23 09:53 73 106/60 04/13/23 09:52 77 94 04/13/23 09:47 79 95 04/13/23 09:46 79 94 04/13/23 09:42 79 95 04/13/23 09:37 81 95 04/13/23 09:32 76 96 04/13/23 09:27 74 96 04/13/23 09:22 78 95 04/13/23 09:17 80 95 04/13/23 09:15 77 94 04/13/23 09:12 82 97 04/13/23 09:07 81 94 04/13/23 09:02 78 96 04/13/23 08:57 81 96 04/13/23 08:52 74 96 04/13/23 08:53 76 113/63 04/13/23 08:47 75 95 04/13/23 08:46 78 94 04/13/23 08:42 81 95 04/13/23 08:41 80 94 04/13/23 08:37 90 98 04/13/23 08:32 80 95 04/13/23 08:27 77 95 04/13/23 08:22 95 04/13/23 08:22 79 04/13/23 08:22 80 94 04/13/23 08:17 76 95 04/13/23 08:16 78 94 04/13/23 08:12 78 96 04/13/23 08:07 88 98 04/13/23 08:02 91 H 98 04/13/23 07:57 83 98 04/13/23 07:52 80 97 04/13/23 07:53 76 118/63 04/13/23 07:47 84 98 PG Care Time/CCT Total # of Minutes Spent Total Time Spent with Patient: Total time spent is greater than 50% in coordination of care (as documented) at patient's floor/unit and/or counseling patient: Coding Level of Care Code None Diagnoses
[2023-04-13] MEDS ORDERED: bisacodyL 5 MG TABEC PO SCH (20:00)
[2023-04-14] MEDS: BENZOCAINE 20% AER SPR 82.5 GM CAN EXT PRN (00:17)
[2023-04-14 00:49] LABS: Basophils # (auto) 0.02 K/uL (0-0.2); Basophils % (auto) 0.1 %; Eosinophils # (auto) 0.07 K/uL (0-0.50); Eosinophils % (auto) 0.5 %; Hematocrit (blood only) 23.3 % (37.0-47.0); Immature Granulocytes # (auto) 0.07 K/uL (0.01-0.20); Immature Granulocytes % (auto) 0.5 %; Lymphocytes # (auto) 1.51 K/uL (1.2-3.4); Mean Corpuscular Hemoglobin 30.8 pg (25.0-34.0); Mean Corpuscular Hgb Conc 34.3 g/dL (32.0-36.0); Mean Corpuscular Volume 89.6 fL (80.0-100.0); Mean Platelet Volume 12.4 fL (9.4-12.4); Monocytes # (auto) 0.69 K/uL (0.11-0.59); Monocytes % (auto) 4.6 %; Neutrophils # (auto) 12.76 K/uL (1.40-6.50); Neutrophils % (auto) 84.3 %; Platelet Count 76 K/uL (130-400); RDW Coefficient of Variation 14.6 % (11.5-14.5); RDW Standard Deviation 46.1 fL (36.4-46.3); White Blood Count 15.12 K/ul (4.8-10.8)
[2023-04-14] MEDS: IBUPROFEN 600 MG TAB PO PRN ×2 (04:08→21:22)
[2023-04-14 06:32] LABS: Basophils # (auto) 0.03 K/uL (0-0.2); Basophils % (auto) 0.2 %; Eosinophils # (auto) 0.06 K/uL (0-0.50); Eosinophils % (auto) 0.4 %; Hematocrit (blood only) 22.3 % (37.0-47.0); Hemoglobin 7.5 g/dl (12.0-16.0); Immature Granulocytes # (auto) 0.07 K/uL (0.01-0.20); Immature Granulocytes % (auto) 0.4 %; Lymphocytes # (auto) 2.61 K/uL (1.2-3.4); Lymphocytes % (auto) 16.7 %; Mean Corpuscular Hemoglobin 30.4 pg (25.0-34.0); Mean Corpuscular Hgb Conc 33.6 g/dL (32.0-36.0); Mean Corpuscular Volume 90.3 fL (80.0-100.0); Mean Platelet Volume 12.3 fL (9.4-12.4); Monocytes # (auto) 0.92 K/uL (0.11-0.59); Monocytes % (auto) 5.9 %; Neutrophils % (auto) 76.4 %; Platelet Count 76 K/uL (130-400); RDW Coefficient of Variation 14.5 % (11.5-14.5); RDW Standard Deviation 46.6 fL (36.4-46.3); Red Blood Count 2.47 M/uL (4.20-5.40); White Blood Count 15.59 K/ul (4.8-10.8)
[2023-04-14 06:42] LABS: Albumin Level 2.6 gm/dl (3.4-5.0); BUN Creatinine Ratio 14.6 (10-20); Bilirubin,Total 0.3 mg/dl (0.2-1.0); Calcium 6.2 mg/dl (8.6-10.3); Creatinine Clr Calc Pharmacy 101.2 ml/min; Est GFR (African American) 106.6 ml/min; Globulin 2.5 gm/dl (2.5-4.0); Magnesium Therapeutic L&D Only 3.9 mg/dL (4.0-8.0); Potassium 4.4 mmol/L (3.5-5.1); Total Protein 5.1 gm/dl (6.0-8.3)
--- NOTE | 2023-04-14 06:54 | Obstetrical Progress Note ---
Date of Service <Demetrius Knight DO - Last Filed: 04/14/23 07:14> April 14, 2023 Assessment & Plan <Demetrius Knight DO - Last Filed: 04/14/23 07:14> (1) Severe pre-eclampsia: (2) Carrier of group B Streptococcus: (3) HELLP (hemolytic anemia/elev liver enzymes/low platelets in ): (4) Vaginal delivery: Plan - Feels well today. Eating well, voiding well, ambulating well. - Pain well controlled with ibuprofen 600mg Q4H PRN - Routine care -- OOB, ambulation, diet progression as tolerated - 24 hours of mag sulfate given due to HELLP syndrome. - Liver enzymes no longer elevated on morning labs, platelets continue to be decreased at 76 though improving. - Hemoglobin of 7.6 this morning. - We will continue to monitor throughout the day, no signs or symptoms of seizure at this time. - After discharge will have 6 week follow-up with Dr. Amanda Garcia #:: 2 <Steffanie Lemus, - Last Filed: 04/14/23 08:01> (1) Severe pre-eclampsia: (2) Carrier of group B Streptococcus: (3) HELLP (hemolytic anemia/elev liver enzymes/low platelets in ): (4) Vaginal delivery: Subjective <Demetrius Knight DO - Last Filed: 04/14/23 07:14> Ambulation: ambulating normally Voiding: no voiding problems Passing Gas:: Yes Diet Tolerance:: regular diet Lochia:: Small Feeding Type:: breast feeding Current Pain Level(1-10): 0 Review of Systems Denies fever, chills, sweats Denies shortness of breath, difficulty breathing, chest pain, palpitations, chest pressure. Denies breast pain. Denies dysuria. Denies headache or changes in vision. Physical Exam <Demetrius Knight DO - Last Filed: 04/14/23 07:14> General: Alert, oriented. No acute distress. Cardiac: Regular rate and rhythm, no murmurs/rubs/gallops. Respiratory: Clear to auscultation bilaterally a/p, no wheezes/rales/rhonchi. No increased work of breathing. Symmetrical chest rise. No respiratory distress. Abdomen: Soft, nontender, nondistended. Bowel sounds present. Uterus: Uterine fundus firm, palpable 1 cm below umbilicus. Lower Extremities: No lower extremity edema or swelling. No deep calf pain. Binh's negative bilaterally. Results & Data <Demetrius Knight DO - Last Filed: 04/14/23 07:14> Vital Signs (Past 12 Hours) Vital Signs Temp Pulse Pulse Pulse Resp BP BP 04/14/23 03:25 87 117/75 04/13/23 23:35 36.7 C 93 H 18 109/71 04/13/23 23:00 36.7 C 18 111/67 04/13/23 21:00 18 04/13/23 21:00 18 04/13/23 19:30 36.7 C 18 04/13/23 19:30 18 04/13/23 22:06 86 122/69 04/13/23 22:05 04/13/23 22:05 103 H 04/13/23 22:05 96 H 04/13/23 22:00 99 H 04/13/23 21:55 91 H 04/13/23 21:50 93 H 04/13/23 21:45 95 H 04/13/23 21:40 95 H 04/13/23 21:35 88 04/13/23 21:34 94 H 04/13/23 21:30 93 H 04/13/23 21:25 93 H 04/13/23 21:20 94 H 04/13/23 21:15 93 H 04/13/23 21:10 97 H 04/13/23 21:05 93 H 04/13/23 21:00 88 04/13/23 21:01 88 04/13/23 20:55 95 H 04/13/23 20:50 99 H 04/13/23 20:45 112 H 04/13/23 20:40 99 H 04/13/23 20:35 94 H 04/13/23 20:30 115 H 04/13/23 20:25 92 H 04/13/23 20:20 92 H 04/13/23 20:17 90 111/70 04/13/23 20:15 89 04/13/23 20:10 88 04/13/23 20:05 88 04/13/23 20:00 85 04/13/23 19:55 89 04/13/23 19:50 93 H 04/13/23 19:45 85 04/13/23 19:40 89 04/13/23 19:35 86 04/13/23 19:30 87 04/13/23 19:25 91 H 04/13/23 19:20 98 H 04/13/23 19:15 86 123/75 04/13/23 19:10 80 04/13/23 19:05 87 04/13/23 19:00 85 04/13/23 18:55 87 Pulse Ox O2 Del Method 04/14/23 03:25 04/13/23 23:35 100 Room Air 04/13/23 23:00 Room Air 04/13/23 21:00 04/13/23 21:00 04/13/23 19:30 99 04/13/23 19:30 04/13/23 22:06 04/13/23 22:05 100 04/13/23 22:05 04/13/23 22:05 94 04/13/23 22:00 99 04/13/23 21:55 99 04/13/23 21:50 99 04/13/23 21:45 99 04/13/23 21:40 99 04/13/23 21:35 99 04/13/23 21:34 92 04/13/23 21:30 100 04/13/23 21:25 99 04/13/23 21:20 100 04/13/23 21:15 99 04/13/23 21:10 99 04/13/23 21:05 99 04/13/23 21:00 94 04/13/23 21:01 92 04/13/23 20:55 98 04/13/23 20:50 99 04/13/23 20:45 98 04/13/23 20:40 98 04/13/23 20:35 100 04/13/23 20:30 97 04/13/23 20:25 100 04/13/23 20:20 98 04/13/23 20:17 04/13/23 20:15 98 04/13/23 20:10 99 04/13/23 20:05 100 04/13/23 20:00 99 04/13/23 19:55 99 04/13/23 19:50 99 04/13/23 19:45 100 04/13/23 19:40 99 04/13/23 19:35 99 04/13/23 19:30 98 04/13/23 19:25 98 04/13/23 19:20 99 04/13/23 19:15 99 04/13/23 19:10 98 04/13/23 19:05 98 04/13/23 19:00 98 04/13/23 18:55 98 Laboratory Results 04/14/23 05:53 04/14/23 05:53 <Steffanie Lemus DO - Last Filed: 04/14/23 08:01> Co-Signing Physician Notes Resident Physician Supervision Note: I interviewed and examined the patient. Discussed with Dr. Knight and agree with findings and plan as documented in the note. Any exceptions or clarifications are listed here: PPD#2 doing well. Lab trend improving. BP wnl. Feeling much better after stopping magnesium. Will continue to monitor progress today - could potentially go home tonight. Documented By: Steffanie Lemus DO Resident Activity Tracking <Demetrius Knight DO - Last Filed: 04/14/23 07:14> Resident Involvement: Resident Care Provided Care Provided: OB Delivery
[2023-04-14 06:59] LABS: RBC Morphology Unremarkable
[2023-04-14 07:03] LABS: Albumin Level 2.6 gm/dl (3.4-5.0); Bilirubin,Total 0.3 mg/dl (0.2-1.0); Calcium 6.1 mg/dl (8.6-10.3); Potassium 3.6 mmol/L (3.5-5.1)
[2023-04-14 07:09] LABS: BUN Creatinine Ratio 11.8 (10-20); Creatinine Clr Calc Pharmacy 88.3 ml/min; Est GFR (African American) 90.4 ml/min; Globulin 2.5 gm/dl (2.5-4.0); Total Protein 5.1 gm/dl (6.0-8.3)
[2023-04-14] MEDS: DOCUSATE SODIUM 100 MG CAP PO SCH ×2 (07:45→21:22)
[2023-04-14] MEDS: PRENATAL VITAMIN 1 TAB PO SCH (07:45)
[2023-04-14] MEDS: FERROUS SULFATE 325 MG TAB PO SCH (07:45)
--- NOTE | 2023-04-15 06:59 | Obstetrical Progress Note ---
Date of Service <Demetrius KentMarcie Eugene - Last Filed: 04/15/23 07:31> April 15, 2023 Assessment & Plan <Demetrius Knight - Last Filed: 04/15/23 07:31> (1) Severe pre-eclampsia: (2) Carrier of group B Streptococcus: (3) HELLP (hemolytic anemia/elev liver enzymes/low platelets in ): (4) Vaginal delivery: Plan - Feels well today. Eating well, voiding well, ambulating well. - Pain well controlled with ibuprofen 600mg Q4H PRN - Routine care -- OOB, ambulation, diet progression as tolerated - 24 hours of mag sulfate given due to HELLP syndrome. - Liver enzymes no longer elevated and platelets continue to be decreased though improving on 04/14. - Hemoglobin of 7.6 on 04/14 - No signs or symptoms of seizure. - After discharge will have 6 week follow-up with Dr. Patel. - Discussed HELLP syndrome worsening symptoms and to come to the office or come to the emergency room if she experiences any of these. - Blood pressure check in 1 week Day #:: 3 <Pat Smith MD, FACOG - Last Filed: 04/15/23 07:26> (1) Severe pre-eclampsia: (2) Carrier of group B Streptococcus: (3) HELLP (hemolytic anemia/elev liver enzymes/low platelets in ): (4) Vaginal delivery: Subjective <Demetrius KentMarcie Eugene - Last Filed: 04/15/23 07:31> Ambulation: ambulating normally Voiding: no voiding problems Passing Gas:: Yes Diet Tolerance:: regular diet Lochia:: Small Feeding Type:: breast feeding Current Pain Level(1-10): 0 Review of Systems Denies fever, chills, sweats Denies shortness of breath, difficulty breathing, chest pain, palpitations, chest pressure. Denies breast pain. Denies dysuria. Denies headache or changes in vision. Physical Exam <Demetrius KentMarcie EugeneDO - Last Filed: 04/15/23 07:31> General: Alert, oriented. No acute distress. Cardiac: Regular rate and rhythm, no murmurs/rubs/gallops. Respiratory: Clear to auscultation bilaterally a/p, no wheezes/rales/rhonchi. No increased work of breathing. Symmetrical chest rise. No respiratory distress. Abdomen: Soft, nontender, nondistended. Bowel sounds present. Uterus: Uterine fundus firm, palpable 2 cm below umbilicus. Lower Extremities: No lower extremity edema or swelling. No deep calf pain. Binh's negative bilaterally. Results & Data <Demetrius Knight DO - Last Filed: 04/15/23 07:31> Vital Signs (Past 12 Hours) Vital Signs Temp Pulse Resp BP Pulse Ox O2 Del Method 04/14/23 23:19 36.8 C 91 H 18 120/77 97 Room Air Laboratory Results 04/14/23 05:53 04/14/23 05:53 <Pat Smith MD, FACOG - Last Filed: 04/15/23 07:26> Co-Signing Physician Notes Resident Physician Supervision Note: I interviewed and examined the patient. Discussed with Dr. Knight and agree with findings and plan as documented in the note. Any exceptions or clarifications are listed here: Doing well. Labs had been recovering yesterday. No s/s of worsening disease. Plan d/c home with rtc Thurs/fri for BP check. s/s of pet reviewed with the patient. Documented By: Pat Smith MD, FACOG
[2023-04-15] MEDS: PRENATAL VITAMIN 1 TAB PO SCH (08:10)
[2023-04-15] MEDS: FERROUS SULFATE 325 MG TAB PO SCH (08:10)
[2023-04-15] MEDS: DOCUSATE SODIUM 100 MG CAP PO SCH (08:10)
[2023-04-15] MEDS: IBUPROFEN 600 MG TAB PO PRN (08:10)
== END 2023-04-15 10:25 | disposition home or self-care (01) | DRG 807 ==
LOC: OPB 06:31 → 4S1 06:34 → 4E2 04-13 23:30